=== PATIENT | female | born 1970 | race African-American/Black ===

== ENCOUNTER 2024-03-25 17:15 | Emergency (ER) | payer SELFPAY ==
[~2024-03-25] VITALS: Ht 170.2 cm; Wt 114.0 kg
[2024-03-25 17:18] VITALS: TEMP 98.4; O2SAT 98
[2024-03-25 18:30] VITALS: BP 167/81; PULSE 93; RESP 18; O2SAT 100
[2024-03-25 19:00] LABS: BASOPHILS % 0.3 % (0.0-2.0); CARBON DIOXIDE 24 mEq/L (21-32); CHLORIDE 101 mEq/L (98-107); EOSINOPHILS % 0.1 % (0.0-5.0); HEMATOCRIT. 53.8 % (36.0-48.0); HEMOGLOBIN. 18.1 g/dL (12.0-16.0); LYMPHOCYTES % 8.6 % (20.0-50.0); MEAN CORPUSCULAR HEMOGLOBIN 30.8 pg (28.0-32.0); MEAN CORPUSCULAR HGB CONC 33.6 g/dL (31.0-37.0); MEAN CORPUSCULAR VOLUME 91.6 fL (81.0-99.0); MEAN PLATELET VOLUME 7.1 fl (7.4-10.4); MONOCYTES % 3.1 % (2.0-8.0); NEUTROPHILS % 87.9 % (40.0-76.0); PLATELET 369 x1000/uL (130-400); POTASSIUM 4.6 mEq/L (3.5-5.1); RED BLOOD CELL COUNT 5.88 mill/uL (4.2-5.4); RED CELL DISTRIBUTION WIDTH 14.1 % (11.6-14.6); SODIUM 138 mEq/L (136-145); WHITE BLOOD COUNT 13.2 x1000/uL (4.5-11.0)
[2024-03-25] MEDS: ONDANSETRON HCL 4MG/2ML INJ IV ONE (19:01)
[2024-03-25] MEDS: SODIUM CHLORIDE 0.9% 1,000 ML IV ONE ×2 (19:02→20:47)
[2024-03-25 19:06] LABS: CREATININE 0.7 mg/dL (0.6-1.0); GLUCOSE 196 mg/dL (70-105); UREA NITROGEN BLOOD 11 mg/dL (9-23)
[2024-03-25 19:08] LABS: BETA HYDROXYBUTYRATE 2.5 mMol/L (0.0-0.3)
[2024-03-25 19:16] LABS: TROPONIN I HIGH SENSITIVITY < 4 ng/L (3.0-34)
[2024-03-25 19:26] LABS: HCG SCREEN NEGATIVE
[2024-03-25] MEDS ORDERED: ONDA-239 PO (22:01)
== END 2024-03-25 22:23 | disposition left against medical advice (07) ==
LOC: ER 17:15
DX: B34.9 Viral infection, unspecified (principal); R05.9 Cough, unspecified; E11.65 Type 2 diabetes mellitus with hyperglycemia; E86.0 Dehydration; R09.81 Nasal congestion; I10 Essential (primary) hypertension; Z88.2 Allergy status to sulfonamides
CPT/HCPCS: 80048; 82010; 84703; 83690; 85025; 84484; 36415; 71045; 96374; 99284; J2405; J7030; Z7610